=== PATIENT | female | born 1940 | race Caucasian/White ===

== ENCOUNTER 2018-12-03 11:28 | Emergency (ER) | payer MEDICARE, OTHER ==
[~2018-12-03] VITALS: Ht 162.6 cm; Wt 74.8 kg
[2018-12-03 11:55] LABS: Source, Urine Clean Catch
[2018-12-03] MEDS ORDERED: POTA10T PO (11:55)
[2018-12-03] MEDS ORDERED: AMLO10 PO (11:56)
[2018-12-03] MEDS ORDERED: LOSA50 PO (11:56)
[2018-12-03] MEDS ORDERED: OMEPRAZOLE20 MG PO (11:57)
[2018-12-03] MEDS ORDERED: ASPI81CH PO (11:57)
[2018-12-03] MEDS ORDERED: PRAVASTATIN SOD10 MG PO (11:57)
[2018-12-03] MEDS ORDERED: ALPR.5 PO (11:58)
[2018-12-03] MEDS ORDERED: HALCION PO (11:58)
[2018-12-03 12:02] LABS: Bilirubin, Urine Neg (Neg); Blood, Urine 3+ (Neg); Glucose Qualitative, Urine Neg (Neg); Ketones, Urine 1+ (Neg); Leukocyte Esterase, Urine 3+ (Neg); Nitrite, Urine Neg (Neg); Protein, Urine 3+ (Neg); Urobilinogen, Urine 1+ (Normal)
[2018-12-03] MEDS ORDERED: Macrobid 100 M100 MG PO (12:11)
[2018-12-03] MEDS ORDERED: Pyridium200 MG PO (12:11)
[2018-12-03 12:17] LABS: Appearance, Urine Cloudy (Clear); Color, Urine Yellow (P-Yellow)
[2018-12-03 12:19] LABS: White Blood Cells, Urine 50-100 /hpf (0-5)
[2018-12-03 12:20] LABS: Bacteria Many /hpf; Squamous Epithelial Cells Few /hpf (Few); Transitional Epithelial Cells Few /hpf (0-Rare)
== END 2018-12-03 12:15 | disposition home or self-care (01) ==
LOC: ER 11:28
PROVIDERS: Emergency Medicine
DX: N39.0 Urinary tract infection, site not specified (principal); I10 Essential (primary) hypertension; Z88.1 Allergy status to other antibiotic agents; Z79.899 Other long term (current) drug therapy; Z79.82 Long term (current) use of aspirin
CPT/HCPCS: 81001; 87077; 87086; 87186; 99283